=== PATIENT | female | born 1955 | race Hispanic/Latino ===

== ENCOUNTER 2022-08-04 13:49 | Emergency (ER) | payer OTHER ==
[~2022-08-04] VITALS: Ht 157.5 cm; Wt 90.7 kg
[2022-08-04 13:49] VITALS: BP 109/69
[2022-08-04] MEDS ORDERED: CYCLOBENZAPRINE HCL 10 MG TABLET PO SCH (16:00)
[2022-08-04] MEDS ORDERED: CYCL5TAB PO (16:21)
== END 2022-08-04 17:33 | disposition home or self-care (01) ==
LOC: EDH 13:49
DX: S49.81XA Other specified injuries of right shoulder and upper arm, initial encounter (principal); M89.011 Algoneurodystrophy, right shoulder; X58.XXXA Exposure to other specified factors, initial encounter; Y93.89 Activity, other specified; Y92.89 Other specified places as the place of occurrence of the external cause; Y99.8 Other external cause status